=== PATIENT | male | born 1950 | race Caucasian/White ===

== ENCOUNTER 2024-05-16 18:32 | Emergency (ER) | payer OTHER, MEDICARE ==
[2024-05-16 19:16] VITALS: BP 154/90; PULSE 89; RESP 20; TEMP 98.3; BMI 34.9
[2024-05-16] MEDS ORDERED: LIDOCAINE 5% TOPICAL PATCH ONE ×2 (19:59→20:07)
[2024-05-16] MEDS ORDERED: ACETAMINOPHEN 500 MG TABLET (FP) ONE (19:59)
[2024-05-16] MEDS: ACETAMINOPHEN 500 MG TABLET (FP) PO ONE (20:09)
[2024-05-16] MEDS: LIDOCAINE 5% TOPICAL PATCH TP ONE (20:09)
[2024-05-16] MEDS ORDERED: LIDOCAINE PATCH REMOVAL MC SCH (22:00)
== END 2024-05-16 20:57 | disposition home or self-care (01) ==
LOC: FER 18:32
DX: S60.221A Contusion of right hand, initial encounter (principal); M62.838 Other muscle spasm; M17.12 Unilateral primary osteoarthritis, left knee; W01.0XXA Fall on same level from slipping, tripping and stumbling without subsequent striking against object, initial encounter; Y92.019 Unspecified place in single-family (private) house as the place of occurrence of the external cause
CPT/HCPCS: 73030-TC-RT-FY; 73110-TC-LT-FY; 73130-TC-LT-FY; 73562-TC-LT-FY; 99284-25